=== PATIENT | male | born 1955 | race Caucasian/White ===

== ENCOUNTER 2016-09-06 14:00 | Inpatient (IN) ==
[2016-09-06 16:31] LABS: Appearance,Urine CLEAR; Bilirubin,Urine NEG (NEG); Color,Urine YELLOW; Glucose,Urine (UA) NEGATIVE (NEG); Leukocyte Esterase,Urine NEG /uL (NEG); Nitrate,Urine NEG (NEG); Protein,Urine NEG (NEG); Specific Gravity,Urine 1.013 (1.000-1.035); Urine Blood NEG mg/dL (<0.03); Urobilinogen,Urine NEG (NEG)
[2016-09-06 17:15] LABS: Basophils # (Auto) 0 K/mcL (0.0-0.3); Basophils % (Auto) 0.4 % (0.0-2.0); Eosinophils # (Auto) 0.3 K/mcL (0.0-0.7); Eosinophils % (Auto) 3.5 % (0.0-7.0); Granulocytes % (Auto) 65.6 % (38.0-78.0); Lymphocytes # (Auto) 2.2 K/mcL (1.5-4.8); Mean Cell Volume 86.9 fL (80.0-100.0); Mean Corpuscular Hemoglobin 28.7 pg (26.0-34.0); Monocytes # (Auto) 0.8 K/mcL (0.1-0.9); Monocytes % (Auto) 8.5 % (1.0-12.0); Platelet Count 368 K/mcL (140-440); RBC 4.99 M/mcL (4.50-5.90); Red Cell Distribution Width 13.4 % (11.5-14.5)
[2016-09-06 17:16] LABS: Blood Urea Nitrogen 18 mg/dl (6-20)
[2016-09-12] MEDS ORDERED: ceFAZolin 1 GM VIAL IV SCH (06:00)
[2016-09-12] MEDS ORDERED: oxyCODONE 10 MG TAB.ER.12H PO SCH (06:00)
[2016-09-12] MEDS ORDERED: PREGABALIN 150 MG CAPSULE PO SCH (06:00)
[2016-09-12] MEDS ORDERED: KETOROLAC 30 MG, ROPIVACAINE HCL/PF 49.5 ML, EPINEPHrine 0.5 MG, 0.9 % SODIUM CHLORIDE ... IJ SCH (07:30)
[2016-09-12] MEDS ORDERED: LIDOCAINE HCL/PF 100 MG/5 ML SYRINGE IV ONE (07:40)
[2016-09-12] MEDS ORDERED: ePHEDrine 50 MG/ML AMPUL IV ONE (07:40)
[2016-09-12] MEDS ORDERED: PROPOFOL 200 MG/20 ML VIAL IV ONE (07:40)
[2016-09-12] MEDS ORDERED: MIDAZOLAM 5 MG/5 ML VIAL IV ONE (07:40)
[2016-09-12] MEDS ORDERED: ONDANSETRON 4 MG/2 ML VIAL IV ONE (07:40)
[2016-09-12] MEDS ORDERED: TRANEXAMIC ACID 1,000 MG/10 ML VIAL IV ONE ×2 (07:40→09:52)
[2016-09-12] MEDS ORDERED: DEXAMETHASONE 10 MG/ML VIAL IV ONE (07:40)
[2016-09-12] MEDS ORDERED: KETOROLAC 30 MG, ROPIVACAINE HCL/PF 49.5 ML, EPINEPHrine 0.5 MG, 0.9 % SODIUM CHLORIDE ... IJ ONE (08:00)
[2016-09-12] MEDS ORDERED: diphenhydrAMINE 50 MG/ML VIAL IV PRN (09:51)
[2016-09-12] MEDS ORDERED: HYDROmorphone 2 MG/ML SYRINGE IV PRN ×2 (09:51→09:52)
[2016-09-12] MEDS ORDERED: PROMETHAZINE 25 MG/ML VIAL IV PRN (09:51)
[2016-09-12] MEDS ORDERED: BENZOCAINE/MENTHOL 1 LOZENGE PO PRN ×2 (09:51→09:52)
[2016-09-12] MEDS ORDERED: METHOCARBAMOL 1,000 MG/10 ML VIAL IV PRN (09:51)
[2016-09-12] MEDS ORDERED: MEPERIDINE 25 MG/ML SYRINGE IV PRN (09:51)
[2016-09-12] MEDS ORDERED: ONDANSETRON 4 MG/2 ML VIAL IV PRN ×2 (09:51→09:52)
[2016-09-12] MEDS ORDERED: LACTATED RINGERS 250 ML IV PRN (09:51)
[2016-09-12] MEDS ORDERED: NALOXONE HCL 0.4 MG/ML VIAL IV PRN (09:51)
[2016-09-12] MEDS ORDERED: IPRATROPIUM/ALBUTEROL 3 ML AMPUL.NEB NEB PRN (09:51)
[2016-09-12] MEDS ORDERED: fentaNYL 100 MCG/2 ML VIAL IV PRN (09:51)
[2016-09-12] MEDS ORDERED: FLUMAZENIL 0.1 MG/ML ML IV PRN (09:51)
[2016-09-12] MEDS ORDERED: POLYETHYLENE GLYCOL 3350 17 GM PACKET PO PRN (09:52)
[2016-09-12] MEDS ORDERED: MAGNESIUM HYDROXIDE 30 ML ORAL.SUSP PO PRN (09:52)
[2016-09-12] MEDS ORDERED: HYDROcodone/APAP 10/325MG TABLET PO PRN (09:52)
[2016-09-12] MEDS ORDERED: FLEETS ADULT ENEMA PR PRN (09:52)
[2016-09-12] MEDS ORDERED: BISACODYL 10 MG SUPP.RECT PR PRN (09:52)
[2016-09-12] MEDS ORDERED: ALBUTEROL SULFATE 1 PUFF INHALER INH PRN (10:00)
[2016-09-12] MEDS ORDERED: LACTATED RINGERS 1,000 ML IV SCH (10:00)
--- NOTE | 2016-09-12 10:03 | Brief Operative Note ---
Date of procedure: 09/12/16 Pre-op diagnosis: Left knee DJD Post-op diagnosis: same Procedure: Left robotic assisted total knee arthroplasty Grafts/Implants: Yes (Sukumar Triathlon CR 5, 6 tibia, 11mm insert, 36 patella) Anesthesia: spinal, GLMA Findings: as above Complications: none Surgeon: Ron Hsieh Supervisor Product Inspection: Natanael Aguirre Estimated blood loss (cc): 30 Specimens Removed/Pathology: none sent Condition: stable Disposition: PACU
--- NOTE | 2016-09-12 10:50 | Operative Note ---
DATE OF OPERATION: 09/12/2016 PREOPERATIVE DIAGNOSIS: Left knee multi-compartment severe osteoarthritis. POSTOPERATIVE DIAGNOSIS: Left knee multi-compartment severe osteoarthritis. PROCEDURE PERFORMED: Left robotic-assisted total knee arthroplasty using the Sukumar Triathlon size 5 cruciate retaining femoral component, size 6 tibial baseplate, 11 mm X3 tibial insert, and a 36 mm patellar button. SURGEON: Ron Hsieh MD. CERTIFIED VEHICLE FIRE INVESTIGATOR: Rafa Aguirre PA-C. ANESTHESIA: Spinal plus general. DRAINS: None. SPECIMENS: Bone cuts, which were discarded. BLOOD LOSS: Minimal. POSTOPERATIVE CONDITION: Stable. INDICATIONS FOR SURGERY: This is a 61-year-old male who was having diffuse knee pain. He did not respond to conservative treatment, including injections. He had [id number] medial compartment osteoarthritis. PROCEDURE IN DETAIL: The patient had been seen preoperatively. Informed consent had been obtained after discussion of risks and benefits of surgery. Risks including, but not limited to, bleeding, possibly requiring transfusion; infection, possibly requiring implant removal and prolonged IV antibiotics; injury to nerves, blood vessels, and other surrounding structures; anesthetic risks; incomplete or no resolution of symptoms; stiffness; weakness; swelling; pain; clunking sounds; possibility of needing further surgery; DVT and pulmonary embolus risks. He understood and wished to proceed. Correct operative site was marked in preoperative holding and spinal anesthesia was given. He was then taken to the operating room and general anesthesia given. The left lower extremity was carefully prepped and draped in normal sterile fashion, and a time-out was performed verifying patient name, operative site, and plan. Esmarch was used to exsanguinate the extremity and tourniquet was inflated. A midline incision was made with a scalpel through skin and subcutaneous tissue. Irrisept was irrigated and then a medial parapatellar arthrotomy made. A second Irrisept irrigation was done. We did a subperiosteal release of the deep fibers of the MCL and then placed our femoral and tibial pins, making two stab incisions proximally and distally and drilling two bicortical pins. We then hooked up the arrays and also placed our femoral and tibial check points. We did our hip center registration, as well as medial and lateral malleoli of the ankle. We then did our femoral and tibial check points with double check. We then did our sharp blue probe data point entry. This was done on the femur and the tibia. Once this was completed, we then removed osteophytes. We then checked our flexion and extension gaps. He was tight medially. We did externally rotate the femur 3 degrees over our anticipated plan. We did place the tibia in a small amount of varus. This still left us tight medially, so we went ahead and did more deep release of the MCL, taking this all the way around the corner posteriorly and also taking it more distal with a Bernard elevator. This gained us more. This put us at about 19 mm symmetrical flexion and extension. However, we still had a couple extra millimeters laterally. However, we did not feel it was appropriate to get too out of line with accepted principles for component position, so we went ahead and proceeded to make our bone cut using the robotic assistance. We cut the femur followed by the tibia. Menisci were removed. We then chose our tibial rotation on the tibial component and marked this with Bovie. We then placed our tibial trial and pinned this. We did our boss reamer and keel punch. We placed an 11 mm insert trial and then went ahead and placed our femur, making sure this was flush laterally. This also lined up with our notch. We went ahead and drilled our peg holes. We then went to our patella prep, measuring at 24. After resection we were 13 mm. We sized to a 36, which was medialized and holes drilled. Trial was placed and then the patella lateral facetectomy was performed. We then checked our patellar tracking, which was good and stability was good. We went ahead and opened implants. We removed trial inserts. Antibiotic cement was mixed while we irrigated with Irrisept, and after a minute pulse lavaged with saline. CO2 gun was used to clean cancellous bone surfaces, and then we cemented the tibia followed by the femur. An 11 trial insert was placed, and the patellar button was cemented. The knee was placed in extension. The knee was filled with Irrisept. While cement was hardening, we injected pain cocktail into the pericapsular and subcutaneous tissues. We then irrigated copiously with saline until cement had fully hardened. We flexed the knee up and did any visual inspection for removal of cement. We removed the trial tibial insert. We removed posterior osteophytes with a curved osteotome and curet. We then opened the definitive insert, Irrisept irrigated. We impacted the insert. We then placed the knee in about 30 degrees of flexion after removing our checkpoints and tibial and femoral pins. We used a #2 FiberWire around the superior quadrant of the patella closure in interrupted [id number]. Interrupted #1 Vicryls were used around the inferior quadrant. A running #1 Vicryl was used for patellar tendon and quad tendon. Final Irrisept was done, and then 2-0 Monocryl was used for subcutaneous and sania for skin. Xeroform and sterile dressing were applied. Tourniquet was released. The patient was awakened, extubated, and transferred to recovery in stable condition. [id number] Job ID: [id number] Doc ID: [id number] Ron Hsieh MD
--- NOTE | 2016-09-12 12:06 | XRay Report ---
CLINICAL INFORMATION: Postop total knee prostheses COMPARISON: None. FINDINGS: Total knee prostheses is anatomically aligned. There is fluid and air within the joint space - as expected. No osseous abnormality. IMPRESSION: Negative Interpreted and Authenticated by: Soy Giraldo 09/12/16
[2016-09-12] MEDS ORDERED: DEXTROSE 50% 50 ML VIAL IV PRN (14:29)
[2016-09-12] MEDS: 0.9 % SODIUM CHLORIDE 10 ML SYRINGE IV SCH ×2 (14:59→22:57)
[2016-09-12] MEDS: ceFAZolin 1 GM VIAL IV SCH ×2 (16:20→23:19)
[2016-09-12] MEDS: INSULIN LISPRO 1 UNIT/0.01 ML UNIT SQ SCH ×2 (17:05→21:37)
[2016-09-12] MEDS ORDERED: AMOXICILLIN/POTASSIUM CLAV 875 MG TABLET PO SCH (17:30)
[2016-09-12] MEDS: 0.9 % SODIUM CHLORIDE 1,000 ML IV SCH ×2 (18:24→22:56)
[2016-09-12] MEDS ORDERED: SIMVASTATIN 20 MG TABLET PO SCH (21:00)
[2016-09-12] MEDS ORDERED: SENNOSIDES 1 TABLET PO SCH (21:00)
[2016-09-12] MEDS ORDERED: oxyCODONE/APAP 5/325MG TABLET PO PRN (21:22)
[2016-09-12] MEDS ORDERED: oxyCODONE/APAP 5/325MG TABLET PO ONE ×2 (21:30→23:12)
[2016-09-12] MEDS: DOCUSATE SODIUM 100 MG CAPSULE PO SCH (21:36)
[2016-09-12] MEDS: ASPIRIN 325 MG ENTERIC COATED TABLET PO SCH (21:36)
[2016-09-12] MEDS: FLUTICASONE/SALMETEROL 50/100 INHALER #14 INH SCH (21:37)
[2016-09-13] MEDS ORDERED: oxyCODONE/APAP 5/325MG TABLET PO ONE (03:16)
[2016-09-13] MEDS: 0.9 % SODIUM CHLORIDE 1,000 ML IV SCH (05:08)
[2016-09-13] MEDS: 0.9 % SODIUM CHLORIDE 10 ML SYRINGE IV SCH (05:57)
[2016-09-13] MEDS: INSULIN LISPRO 1 UNIT/0.01 ML UNIT SQ SCH ×2 (07:15→14:13)
[2016-09-13] MEDS ORDERED: PANTOPRAZOLE 40 MG TABLET PO SCH (07:30)
--- NOTE | 2016-09-13 07:51 | Discharge Summary ---
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 Chief Complaint: [] Discharge date: 09/13/16 Hospitalization Hospital course: Pt was admitted for a TKA. Underwent the procedure on the day of admission. Pt was discharged on post-op day one. Will attend out-patient PT. Was given appropriate pain medication and aspirin for anti-coagulation therapy. Discharge diagnosis: L knee osteoarthrosis Exam - Exam Clean and dry: No Weight bearing status: as tolerated Ortho Discharge - TKA - Patient Instructions Diet: Regular Diet Activity: partial weight bearing Total Knee Protocol: For Total Knee: Start ROM SHELBY with stationary bike or rocking chair. Work on gaining full extension of knee. Posterior dislocation precautions provided. Hip abductor strengthening and gait training instructions provided. Apply Cryocuff as instructed. Dressing Care: May shower in 2 days - Follow Up Plan Disposition: Home, Self-Care Prognosis: Good Rehab Potential: Good Overall status at discharge: patient is progressing back to baseline - Orders For Discharge Prescriptions: Aspirin [Ecotrin] 325 mg PO BID #60 tab.ec oxyCODONE/APAP [Percocet 5-325 mg] 1 - 2 tab PO Q4HP PRN #90 tablet PRN Reason: Pain Pending Studies Resuscitation Status Full Code Diet Consistent Carbohydrate Diet Start SatSep 12 Lunch Aspirin (Ecotrin) 325 mg PO BID [facility] Last Admin: 09/12/16 21:36 Dose: 325 mg Diagnostic Test (Pha) (Accu-Chek) 1 each FS ACHS [facility] Last Admin: 09/13/16 07:13 Dose: 1 each Admin: 09/12/16 21:00 Dose: 1 each Admin: 09/12/16 17:00 Dose: 1 each Docusate Sodium (Colace) 100 mg PO BID [facility] Last Admin: 09/12/16 21:36 Dose: 100 mg Sodium Chloride (Sodium Chloride 0.9%) 1,000 mls @ 100 mls/hr IV .Q10H [facility] Last Admin: 09/13/16 05:08 Dose: Infusion: 09/13/16 02:36 Dose: 0 mls/hr Admin: 09/12/16 22:56 Dose: Not Given Admin: 09/12/16 18:24 Dose: 100 mls/hr Insulin Human Lispro (Humalog) 0 unit SQ ACHS [facility] PRN Reason: Protocol Last Admin: 09/13/16 07:15 Dose: Not Given Admin: 09/12/16 21:37 Dose: Not Given Admin: 09/12/16 17:05 Dose: 2 unit Pantoprazole Sodium (Protonix) 40 mg PO QAMAC [facility] Last Admin: 09/13/16 07:15 Dose: 40 mg Fluticasone/Salmeterol (Advair 100-50 Diskus) 1 puff INH BID [facility] Last Admin: 09/12/16 21:37 Dose: 1 dose Senna (Senokot) 2 tab PO HS [facility] Last Admin: 09/12/16 21:36 Dose: 2 tab Simvastatin (Zocor) 20 mg PO HS [facility] Last Admin: 09/12/16 21:36 Dose: 20 mg Sodium Chloride (Saline Flush) 10 ml IV Q8 [facility] Last Admin: 09/13/16 05:57 Dose: Admin: 09/12/16 22:57 Dose: Not Given Admin: 09/12/16 14:59 Dose: Not Given Shift Summary 09/13/16 03:44 Shift Summary by Lyssa Cueto Pt A&O, makes needs known. Up with FWW, standby assist, using urinal at bedside , voiding adequate amounts/almost every 2hours(states he does this at home too) , although retaining 200-300 on post-void bladder scans. IV to LFA, patent, SL. Oxycodone Q4hrs, needs verified by pharmacy. Uses CPAP, sating in low 90's on 2L when not on CPAP, Dressing to left knee, CDI, denies numbness. Foot pumps on. Initialized on 09/13/16 03:44 - END OF NOTE
[2016-09-13] MEDS ORDERED: metFORMIN 500 MG TABLET PO SCH (08:00)
[2016-09-13] MEDS: DOCUSATE SODIUM 100 MG CAPSULE PO SCH (08:37)
[2016-09-13] MEDS: ASPIRIN 325 MG ENTERIC COATED TABLET PO SCH (08:37)
[2016-09-13] MEDS: FLUTICASONE/SALMETEROL 50/100 INHALER #14 INH SCH (08:38)
[2016-09-13] MEDS ORDERED: FLUTICASONE PROPIONATE SPRAY.NAS NS SCH (09:00)
[2016-09-13] MEDS ORDERED: Fluticasone/Vilanterol [Breo Ellipta] 100-25 Mcg Inhaler INH SCH (09:00)
[2016-09-13] MEDS ORDERED: ATENOLOL 50 MG TABLET PO SCH (09:00)
[2016-09-13] MEDS ORDERED: LISINOPRIL 20 MG TABLET PO SCH (09:00)
[2016-09-13] MEDS ORDERED: PNEUMOCOCCAL 23-VAL P-SAC VAC 0.5 ML VIAL IM ONE (10:00)
== END 2016-09-13 12:50 | disposition home or self-care (01) | DRG 470 ==
LOC: MEDSUR 09-12 05:02
PROVIDERS: ADMIT Orthopaedic Surgery; ATTEND Orthopaedic Surgery